=== PATIENT | male | born 1955 | race Caucasian/White ===

== ENCOUNTER 2018-01-22 18:41 | Emergency (ER) | payer OTHER ==
[2018-01-22] MEDS ORDERED: Sodium Chloride 0.9% 10 ML Syringe FLUSH PRN (19:18)
[2018-01-22] MEDS ORDERED: HYDROmorphone 1 MG/ML Syringe IVPUSH ONE (19:22)
[2018-01-22] MEDS ORDERED: Sodium Chloride 0.9% 1,000 ML IV ONE (19:22)
[2018-01-22] MEDS ORDERED: Iopamidol 612 MG/ML 100 ML Bottle IVPUSH ONE (20:20)
[2018-01-22 20:22] LABS: CHLORIDE,CL 99 mmol/L (98-107); SODIUM,NA 134 mmol/L (136-145)
[2018-01-22 20:24] LABS: ANION GAP 10.8 mmol/L (10-20)
[2018-01-22] MEDS ORDERED: Piperacillin/Tazobactam 4.5 GM in Sodium Chloride 0.9% 100 ML IV ONE (20:48)
[2018-01-22] MEDS ORDERED: Take Home: Acetaminophen/oxyCODONE 325-5 MG, 5 Tab Pack PO ONE (21:13)
--- NOTE | 2018-01-23 06:32 | EDM.PDOC ---
ED HPI GENERAL MEDICAL PROBLEM - General Chief Complaint: Abdominal Pain Stated Complaint: abdominal pain Time Seen by Provider: 01/22/18 19:08 Source of Information: Reports: Patient, Family History Limitations: Reports: No Limitations - History of Present Illness INITIAL COMMENTS - FREE TEXT/NARRATIVE: Compains of severe diffuse abdominal pain that has been present for approx. 4 days. He has been experiencing fever and chills. Was seen in clinic today. He did have an elevated WBC. No further workup was performed. Pt. states that the discomfort is not improving and may be getting worse. He states that he has not had a BM for several days. He did consume a bottle of mag citrate today with no result. He is absent his appendix. Denies any dysuria. Onset Date: 01/19/18 Duration: Constant, Getting Worse Location: Reports: Abdomen Quality: Reports: Ache Severity: Severe Worsens with: Reports: Movement Associated Symptoms: Reports: Fever/Chills Lower Abdomen Pain Score (Numeric/FACES): 5 - Related Data Allergies Allergy/AdvReac Type Severity Reaction Status Date / Time No Known Allergies Allergy Verified 01/22/18 19:01 Home Meds: Home Meds . [No Known Home Meds] 01/22/18 [History] Past Medical History - Past Surgical History HEENT Surgical History: Reports: LASIK GI Surgical History: Reports: Appendectomy Social & Family History - Tobacco Use Smoking Status *Q: Current Every Day Smoker Years of Tobacco use: 40 Packs/Tins Daily: 1 - Alcohol Use Days Per Week of Alcohol Use: 7 Number of Drinks Per Day: 6 Total Drinks Per Week: 42 - Recreational Drug Use Recreational Drug Use: No ED ROS GENERAL - Review of Systems Review Of Systems: See Below Constitutional: Reports: Fever, Chills HEENT: Reports: No Symptoms Respiratory: Reports: No Symptoms Cardiovascular: Reports: No Symptoms Endocrine: Reports: No Symptoms GI/Abdominal: Reports: Abdominal Pain, Constipation, Decreased Appetite. Denies : Diarrhea : Reports: No Symptoms Musculoskeletal: Reports: No Symptoms Skin: Reports: No Symptoms Neurological: Reports: No Symptoms ED EXAM, GENERAL - Physical Exam Exam: See Below Exam Limited By: No Limitations General Appearance: Alert, WD/WN, No Apparent Distress Respiratory/Chest: No Respiratory Distress, Lungs Clear, Normal Breath Sounds, No Accessory Muscle Use, Chest Non-Tender Cardiovascular: Normal Peripheral Pulses, Regular Rate, Rhythm, No Edema, No Gallop, No JVD, No Murmur, No Rub Peripheral Pulses: 4+: Radial (R) GI/Abdominal: Normal Bowel Sounds, Soft, No Abnormal Bruit, Tender, Other ( abdomen is mildly distended. Bowel sound normoactive) (Male) Exam: Deferred Rectal (Males) Exam: Deferred Back Exam: Normal Inspection, Full Range of Motion, NT Extremities: Normal Inspection, Normal Range of Motion, Non-Tender, Normal Capillary Refill, No Pedal Edema Skin Exam: Warm, Dry, Intact, Normal Color, No Rash Course - Vital Signs Last Recorded V/S: Last Vital Signs Temp 38.0 C 01/22/18 19:01 Pulse 106 H 01/22/18 19:01 Resp 20 01/22/18 19:01 BP 147/95 H 01/22/18 19:01 Pulse Ox 93 L 01/22/18 19:01 - Orders/Labs/Meds Orders: Active Orders 24 hr Category Date Time Status Abdomen Pelvis w Cont [CT] Stat Exams 01/22/18 20:11 Taken CULTURE BLOOD [BC] Stat Lab 01/22/18 19:40 Received CULTURE BLOOD [BC] Stat Lab 01/22/18 19:46 Received Blood Culture x2 Reflex Set [OM.PC] Stat Oth 01/22/18 19:19 Ordered Peripheral IV Insertion Adult [OM.PC] Routine Oth 01/22/18 19:19 Ordered Labs: Laboratory Tests 01/22/18 01/22/18 01/22/18 Range/Units 19:46 19:46 19:46 WBC 12.3 H (4.0-10.0) x10^3/uL RBC 4.76 (4.5-6.0) x10^6/uL Hgb 15.9 (14.0-18.0) g/dL Hct 44.5 (40.0-52.0) % MCV 93.5 H (78.0-93.0) fL MCH 33.4 H (26.0-32.0) pg MCHC 35.7 (32.0-36.0) g/dL RDW Coeff of Colleen 12.2 (10.0-15.0) % Plt Count 193 (130-400) x10^3/uL Neut % (Auto) 76.6 (50.0-80.0) % Lymph % (Auto) 13.2 L (25.0-50.0) % Yell % (Auto) 9.3 (2.0-11.0) % Eos % (Auto) 0.7 (0.0-4.0) % Baso % (Auto) 0.2 (0.2-1.2) % PT 10.0 (9.6-11.4) SEC INR 1.0 L (2.0-3.5) Sodium 134 L (136-145) mmol/L Potassium 3.8 (3.5-5.1) mmol/L Chloride 99 (98-107) mmol/L Carbon Dioxide 28 (21-32) mmol/L Anion Gap 10.8 (10-20) mmol/L BUN 11 (7-18) mg/dL Creatinine 1.1 (0.70-1.30) mg/dL Est Cr Clr Drug Dosing 79.70 mL/min Estimated GFR (MDRD) > 60 Glucose 145 H (74-106) mg/dL Lactic Acid (0.4-2.0) mmol/L Calcium 8.7 (8.5-10.1) mg/dL Corrected Calcium 9.50 (8.5-10.1) mg/dL Phosphorus 3.3 (2.6-4.7) mg/dL Magnesium 2.3 (1.8-2.4) mg/dL Total Bilirubin 0.9 (0.2-1.0) mg/dL AST 13 L (15-37) U/L ALT 34 (16-63) U/L Alkaline Phosphatase 88 (46-116) U/L C-Reactive Protein 8.8 H (<=0.9) mg/dL Total Protein 6.9 (6.4-8.2) g/dL Albumin 3.0 L (3.4-5.0) g/dL Globulin 3.9 Albumin/Globulin Ratio 0.77 Amylase 29 (25-115) U/L Lipase 123 (73-393) U/L TSH, Ultra Sensitive 1.009 (0.358-3.74) uIU/mL Urine Color (YELLOW) Urine Appearance (CLEAR) Urine pH (5.0-8.0) Ur Specific [place] Urine Protein (NEGATIVE) mg/dL Urine Glucose (UA) (NEGATIVE) mg/dL Urine Ketones (NEGATIVE) mg/dL Urine Occult Blood (NEGATIVE) Urine Nitrite (NEGATIVE) Urine Bilirubin (NEGATIVE) Urine Urobilinogen (0.2) EU/dL Ur Leukocyte Esterase (NEGATIVE) Urine RBC (NOT SEEN) /HPF Urine WBC (NOT SEEN) /HPF Ur Squamous Epith Cells (NEGATIVE) /HPF Amorphous Sediment Urine Bacteria (NEGATIVE) /HPF Urine Mucus (NEGATIVE) /LPF 01/22/18 01/22/18 Range/Units 19:46 19:50 WBC (4.0-10.0) x10^3/uL RBC (4.5-6.0) x10^6/uL Hgb (14.0-18.0) g/dL Hct (40.0-52.0) % MCV (78.0-93.0) fL MCH (26.0-32.0) pg MCHC (32.0-36.0) g/dL RDW Coeff of Colleen (10.0-15.0) % Plt Count (130-400) x10^3/uL Neut % (Auto) (50.0-80.0) % Lymph % (Auto) (25.0-50.0) % Yell % (Auto) (2.0-11.0) % Eos % (Auto) (0.0-4.0) % Baso % (Auto) (0.2-1.2) % PT (9.6-11.4) SEC INR (2.0-3.5) Sodium (136-145) mmol/L Potassium (3.5-5.1) mmol/L Chloride (98-107) mmol/L Carbon Dioxide (21-32) mmol/L Anion Gap (10-20) mmol/L BUN (7-18) mg/dL Creatinine (0.70-1.30) mg/dL Est Cr Clr Drug Dosing mL/min Estimated GFR (MDRD) Glucose (74-106) mg/dL Lactic Acid 0.6 (0.4-2.0) mmol/L Calcium (8.5-10.1) mg/dL Corrected Calcium (8.5-10.1) mg/dL Phosphorus (2.6-4.7) mg/dL Magnesium (1.8-2.4) mg/dL Total Bilirubin (0.2-1.0) mg/dL AST (15-37) U/L ALT (16-63) U/L Alkaline Phosphatase (46-116) U/L C-Reactive Protein (<=0.9) mg/dL Total Protein (6.4-8.2) g/dL Albumin (3.4-5.0) g/dL Globulin Albumin/Globulin Ratio Amylase (25-115) U/L Lipase (73-393) U/L TSH, Ultra Sensitive (0.358-3.74) uIU/mL Urine Color Yellow (YELLOW) Urine Appearance Slightly cloudy H (CLEAR) Urine pH 7.5 (5.0-8.0) Ur Specific [place] 1.015 Urine Protein Negative (NEGATIVE) mg/dL Urine Glucose (UA) Negative (NEGATIVE) mg/dL Urine Ketones Negative (NEGATIVE) mg/dL Urine Occult Blood Negative (NEGATIVE) Urine Nitrite Negative (NEGATIVE) Urine Bilirubin Negative (NEGATIVE) Urine Urobilinogen 0.2 (0.2) EU/dL Ur Leukocyte Esterase Negative (NEGATIVE) Urine RBC Not seen (NOT SEEN) /HPF Urine WBC Not seen (NOT SEEN) /HPF Ur Squamous Epith Cells Not seen (NEGATIVE) /HPF Amorphous Sediment Moderate Urine Bacteria Rare (NEGATIVE) /HPF Urine Mucus Rare H (NEGATIVE) /LPF Meds: Medications Discontinued Medications Generic Name Dose Route Start Last Admin Trade Name Freq PRN Reason Stop Dose Admin Hydromorphone HCl 1 mg 01/22/18 19:22 01/22/18 19:45 Dilaudid IVPUSH 01/22/18 19:23 1 mg ONETIME ONE Administration Sodium Chloride 1,000 mls @ 1,000 mls/hr 01/22/18 19:22 01/22/18 19:44 Normal Saline IV 01/22/18 20:21 1,000 mls/hr .BOLUS ONE Administration Piperacillin Sod/Tazobactam 100 mls @ 200 mls/hr 01/22/18 20:48 01/22/18 20: 56 Sod 4.5 gm/ Sodium Chloride IV 01/22/18 21:17 200 mls/hr STAT ONE Administration Iopamidol 100 ml 01/22/18 20:20 01/22/18 20:36 Isovue-300 (61%) IVPUSH 01/22/18 20:21 100 ml ONETIME ONE Administration Oxycodone/Acetaminophen 1 packet 01/22/18 21:13 01/22/18 21:23 Take Home: Acetamin/Oxycodon 325-5 Mg, 5 Pack PO 01/22/18 21:14 1 packet ONETIME ONE Administration Sodium Chloride 10 ml 01/22/18 19:18 01/22/18 19:47 Saline Flush FLUSH 10 ml ASDIRECTED PRN Administration Keep Vein Open - Radiology Interpretation Free Text/Narrative:: Diverticulitis without abscess noted on CT with contrast. - Re-Assessments/Exams Free Text/Narrative Re-Assessment/Exam: 01/23/18 06:34 Pt. was started on Zosyn 4.5 gm in ER. Was given dilaudid 1 mg IV. Departure - Departure Time of Disposition: 21:33 Disposition: Home, Self-Care 01 Clinical Impression: Diverticulitis - Discharge Information Instructions: Diverticulitis, [id number] Referrals: Jorge Kelly PA-C [Primary Care Provider] - Forms: ED Department Discharge Additional Instructions: Cipro 500mg twice daily for 10 days Flagyl 500mg three times daily for 10 days. [place] 5/325mg every 4 hours as needed for pain. Begin miralax 1 capful daily Milk of magnesia twice daily Follow-up in clinic in 7-10 days for recheck. - My Orders Last 24 Hours: My Active Orders 01/22/18 19:19 Blood Culture x2 Reflex Set [OM.PC] Stat Peripheral IV Insertion Adult [OM.PC] Routine 01/22/18 19:40 CULTURE BLOOD [BC] Stat 01/22/18 19:46 CULTURE BLOOD [BC] Stat 01/22/18 20:11 Abdomen Pelvis w Cont [CT] Stat - Assessment/Plan Last 24 Hours: My Active Orders 01/22/18 19:19 Blood Culture x2 Reflex Set [OM.PC] Stat Peripheral IV Insertion Adult [OM.PC] Routine 01/22/18 19:40 CULTURE BLOOD [BC] Stat 01/22/18 19:46 CULTURE BLOOD [BC] Stat 01/22/18 20:11 Abdomen Pelvis w Cont [CT] Stat Plan: Cipro 500mg twice daily for 10 days Flagyl 500mg three times daily for 10 days. [place] 5/325mg every 4 hours as needed for pain. Begin miralax 1 capful daily Milk of magnesia twice daily Follow-up in clinic in 7-10 days for recheck.
== END 2018-01-22 21:33 | disposition home or self-care (01) ==
LOC: VM.ED 18:41
DX: K57.32 Diverticulitis of large intestine without perforation or abscess without bleeding (principal); F17.210 Nicotine dependence, cigarettes, uncomplicated
CPT/HCPCS: 36415; 74177; 80053; 81001; 82150; 83605; 83690; 83735; 84100; 84443; 85025; 85610; 86140; 87040; 96361; 96365; 96375; 99284; A9270; J1170; J2543; J7030; J7050; Q9967

== ENCOUNTER 2018-11-22 07:49 | Day surgery (SDC) | payer OTHER ==
[~2018-11-22 07:49] MED LIST: Lactated Ringers 1,000 ML IV SCH; Sodium Chloride 0.9% 10 ML Syringe FLUSH PRN
[2018-11-22] MEDS ORDERED: Propofol 200 MG/20 ML SDV ONE (10:11)
[2018-11-22] MEDS ORDERED: fentaNYL 100 MCG/2 ML SDV ONE (10:11)
--- NOTE | 2018-11-22 12:19 | OR ---
PREOPERATIVE DIAGNOSIS: Dysphagia. POSTOPERATIVE DIAGNOSES: Significant gastritis with multiple ulcerations, duodenitis, mild gastroesophageal reflux disease with esophageal stenosis. PROCEDURE PROPOSED: Upper gastrointestinal panendoscopy with antral biopsies. PROCEDURE DONE: Upper gastrointestinal panendoscopy with antral biopsies. INDICATION: This is a 63-year-old gentleman who has been having dysphagia symptoms for 3 to 4 years with food sticking in his distal esophageal area. He has never been evaluated before. He does not have any heartburn symptoms. He is not on any antiacid medication. He does consume quite a bit of alcohol, caffeine, and nicotine. TECHNIQUE: The patient was brought to the endoscopy suite, placed in left lateral decubitus position. He was sedated per [employer] with propofol. The flexible video gastroscope was then passed transorally and under visualization advanced well into the duodenum. The proximal duodenum revealed duodenitis. The antrum in the body of the stomach revealed a rather diffuse gastritis with multiple superficial ulcerations and some petechial hemorrhage and some prominent rugal folds. A couple of antral biopsies were taken from the antrum to rule out H. pylori. The GE junction did not reveal any significant hiatal hernia, but he did have some mild GERD and a mild Schatzki's ring and I felt it would be beneficial to dilate this area. FINAL IMPRESSION: 1. Esophageal stenosis with mild gastroesophageal reflux disease. 2. Significant diffuse gastritis with small superficial ulcerations. 3. Duodenitis. PLAN: The patient will be treated with omeprazole 20 mg daily. He needs to significantly cut back on his caffeine, nicotine, alcohol consumption to be able to help himself, and he also will have balloon dilation done today. SCM: 11/22/2018 11:26:20 MODL: 11/22/2018 11:44:08 /[id number]
--- NOTE | 2018-11-22 12:19 | OR ---
PREOPERATIVE DIAGNOSIS: Esophageal stenosis. POSTOPERATIVE DIAGNOSIS: Esophageal stenosis. PROCEDURE PROPOSED: Endoscopic balloon dilation. PROCEDURE DONE: Endoscopic balloon dilation. INDICATIONS: This is a 63-year-old gentleman who on recent EGD this morning was found to have gastritis, GERD with esophageal stenosis, and is having significant dysphagia. It was felt he would benefit with dilation. TECHNIQUE: The endoscope had been brought in from the EGD and it was left in the mid esophagus. I then brought in an 18 to 20 mm dilating balloon and placed it across the GE junction. The GE junction was at 38 cm. The proximal balloon was at 33 cm, thereby the midportion of the balloon was traversing the GE junction. I then inflated it to 18 mm, followed by 19, followed by 20 mm which I feel is maximal dilatation that I would like to do. The balloon was then deflated and the area inspected. There was visible evidence of the stenosis being fractured. No signs of any significant bleeding or tearing of the esophagus. He tolerated the procedure well as the scope and the balloon were then removed. FINAL IMPRESSION: Esophageal stenosis dilated to 20 mm with mild gastroesophageal reflux disease. PLAN: As instructed on the EGD report, omeprazole, cut back on the caffeine, nicotine, alcohol. Follow up with his PCP as needed. SCM: 11/22/2018 11:26:20 MODL: 11/22/2018 11:46:39 /[id number]
--- NOTE | 2018-11-27 11:02 | LETTER ---
11/27/2018 Bette Morton RE: BETTE MORTON : 1955 Dear Bette: The biopsies taken from your stomach indicate that you do not have the bacteria in your stomach known as H pylori and do not need any further special treatment for that. I am hoping that your swallowing is improving. If you have further questions, feel free to call or see your family physician. Respectfully,
== END 2018-11-22 12:28 | disposition home or self-care (01) ==
LOC: VM.SDS 07:49
PROVIDERS: ATTEND Surgery
DX: K22.2 Esophageal obstruction (principal); K29.70 Gastritis, unspecified, without bleeding; K25.9 Gastric ulcer, unspecified as acute or chronic, without hemorrhage or perforation; K29.80 Duodenitis without bleeding; K21.9 Gastro-esophageal reflux disease without esophagitis; I25.10 Atherosclerotic heart disease of native coronary artery without angina pectoris; E11.9 Type 2 diabetes mellitus without complications; E78.2 Mixed hyperlipidemia; F17.210 Nicotine dependence, cigarettes, uncomplicated; E66.9 Obesity, unspecified; Z68.31 Body mass index [BMI] 31.0-31.9, adult; Z79.84 Long term (current) use of oral hypoglycemic drugs; Z79.899 Other long term (current) drug therapy
CPT/HCPCS: 43239; 43249; 82962; C1726; J2704; J3010; J7120

== ENCOUNTER 2021-01-06 10:49 | Day surgery (SDC) | payer OTHER ==
[~2021-01-06 10:49] MED LIST changes: -Sodium Chloride 0.9% 10 ML Syringe FLUSH PRN
[2021-01-06] MEDS ORDERED: fentaNYL 100 MCG/2 ML SDV ONE (12:08)
[2021-01-06] MEDS ORDERED: Propofol 200 MG/20 ML SDV ONE ×2 (12:08→13:11)
--- NOTE | 2021-01-11 11:36 | OR ---
SURGERY DATE: 01/06/2021. REFERRING PROVIDER: DESMOND Muñiz. PRE-OPERATIVE DIAGNOSIS: History of esophageal stricture. Positive dysphagia recently. Last EGD was done with Dr. Rose couple of years ago this stricture at the GE junction was dilated to 18 mm to 20 mm. The patient does have regular alcohol intake of about 5 beers per day and also smokes about a pack per day. He denies any NSAID use. He is not on any PPI or H2 evaristo. POST-OPERATIVE DIAGNOSIS: 1. 2-to 3-cm sliding-type hiatal hernia. No strictures, stenosis, or rings noted. 2. Mild lower esophagitis with a 6 mm to 7 mm area of polypoid tissue with telangiectasias. Cold biopsy x2 bites taken. 3. Mild diffuse gastritis with a few scattered superficial ulcerations. Biopsies taken from the antral area. 4. Mild duodenitis within the duodenal bulb. PROCEDURE: Esophagogastroduodenoscopy with cold biopsy x2 sites (antrum and gastroesophageal junction). SURGEON: Kwadwo Mcdowell M.D. ANESTHESIA: Monitored anesthesia care. Kenrick is a 65-year-old male who was brought to the endoscope suite after discussion of risks and benefits (including but not limited to reaction to medication, bleeding, infection, aspiration, perforation). Informed consent was obtained for monitored anesthesia care and esophagogastroduodenoscopy along with possible biopsy and/or dilatation. Pre-procedure exam including oral cavity was unremarkable. IV, oxygen, and monitors were placed. Patient was placed in the left lateral position and sedation was administered. A bite block was placed gently and scope lightly lubricated and passed through the bite block and over the tongue. Hypopharynx and vocal cords were visualized and unremarkable. Scope was passed through the cricopharynx and into the esophagus. The scope was then passed through the distal esophagus and the GE junction was visualized and photographed. GE junction was remarkable for 2-to 3-cm sliding-type hiatal hernia with some mild lower esophagitis. 6-to 7-mm area of polypoid tissue at the GE junction was biopsied x2 bites. There were no strictures, rings, or stenosis noted. The scope was advanced into the stomach and gastric jackson was suctioned. Pylorus was identified and intubated and then the scope was advanced to the third portion of the duodenum. Second portion of the duodenum was unremarkable. The duodenal bulb was visualized and remarkable for mild duodenitis. The scope was brought back into the stomach. Pylorus and antrum were remarkable for some mild antritis with a few scattered superficial ulcerations. Biopsies for H pylori and path were obtained from the antrum. Cold biopsy x2 bites was taken from this area to check for H. pylori and sent for path. Scope was then retroflexed to visualize the angularis, fundus, body, and cardia. These were remarkable for some mild diffuse gastritis. The stomach was desufflated of air and then the scope was slowly withdrawn, and the esophagus was closely visualized during withdrawal all the way into posterior pharynx was otherwise unremarkable. The patient tolerated the procedure well and went to recovery in stable condition. The patient was monitored until at baseline status. Findings and discharge instructions were reviewed and the patient was discharged in good condition. COMPLICATIONS: None. TOTAL TIME: 11 minutes. ESTIMATED BLOOD LOSS: About 2 mL. RECOMMENDATIONS/FOLLOW-UP: We will await results of path report and send letter with results. Prescription done for omeprazole 40 mg daily. I also recommended alcohol and tobacco cessation. I would like to kindly thank Jorge Kelly for this referral. DMB: 01/06/2021 14:39:06 MODL: 01/06/2021 21:00:39 /[id number]
== END 2021-01-06 14:15 | disposition home or self-care (01) ==
LOC: VM.SDS 10:49
PROVIDERS: ATTEND Family Medicine
DX: K20.90 Esophagitis, unspecified without bleeding (principal); K29.50 Unspecified chronic gastritis without bleeding; K29.80 Duodenitis without bleeding; K31.89 Other diseases of stomach and duodenum; K44.9 Diaphragmatic hernia without obstruction or gangrene; K25.9 Gastric ulcer, unspecified as acute or chronic, without hemorrhage or perforation; I78.1 Nevus, non-neoplastic; E78.5 Hyperlipidemia, unspecified; R73.01 Impaired fasting glucose; F17.210 Nicotine dependence, cigarettes, uncomplicated; E66.9 Obesity, unspecified; Z68.31 Body mass index [BMI] 31.0-31.9, adult; Z79.899 Other long term (current) drug therapy
CPT/HCPCS: 00731; J2704; J3010; J7120

== ENCOUNTER 2023-02-26 22:36 | Emergency (ER) | payer MEDICARE, OTHER ==
[2023-02-26] MEDS ORDERED: Aspirin 81 MG Tab.Chew PO ONE (22:55)
[2023-02-26 23:04] LABS: BASOPHILS PERCENT AUTO 0.4 % (0.2-1.2); EOSINOPHILS ABSOLUTE AUTO 0.3 x10^3/uL (0.0-0.5); EOSINOPHILS PERCENT AUTO 3.1 % (0.0-4.0); HEMATOCRIT 41.9 % (40.0-52.0); HEMOGLOBIN 15.1 g/dL (14.0-18.0); IMMATURE GRAN ABSOLUTE AUTO 0.03 x10^3/uL (0.00-0.07); LYMPHOCYTES ABSOLUTE AUTO 3.1 x10^3/uL (1.0-4.8); LYMPHOCYTES PERCENT AUTO 32.6 % (25.0-50.0); MEAN CORPUSCULAR HEMOGLOBIN 32.8 pg (26.0-32.0); MEAN CORPUSCULAR VOLUME 90.9 fL (78.0-93.0); NEUTROPHILS ABSOLUTE AUTO 5.2 x10^3/uL (1.8-7.7); NEUTROPHILS PERCENT AUTO 53.6 % (50.0-80.0); PLATELET COUNT,PLT 186 x10^3/uL (130-400); RED BLOOD CELL COUNT 4.61 x10^6/uL (4.5-6.0); WHITE BLOOD CELL COUNT,WBC 9.6 x10^3/uL (4.0-10.0)
[2023-02-26 23:23] LABS: A/G RATIO 1.06; ALANINE AMINOTRANSFERASE,ALT 34 U/L (16-63); ALBUMIN 3.5 g/dL (3.4-5.0); ALKALINE PHOSPHATASE 82 U/L (46-116); ASPARTATE AMNIOTRANSFERASE,AST 18 U/L (15-37); BILIRUBIN TOTAL 0.7 mg/dL (0.2-1.0); BLOOD UREA NITROGEN,BUN 20 mg/dL (7-18); CARBON DIOXIDE,CO2 26 mmol/L (21-32); CHLORIDE,CL 103 mmol/L (98-107); GLUCOSE RANDOM 119 mg/dL (70-99); LIPASE 50 U/L (19-71); POTASSIUM,K 3.6 mmol/L (3.5-5.1); PROTEIN TOTAL,TP 6.8 g/dL (6.4-8.2); SODIUM,NA 140 mmol/L (136-145)
[2023-02-26 23:24] LABS: ANION GAP 14.6 mmol/L (5-15); ESTIMATED GFR 83 mL/min (>=60)
== END 2023-02-26 23:55 | disposition home or self-care (01) ==
LOC: VM.ED 22:36
DX: R07.89 Other chest pain (principal); E11.9 Type 2 diabetes mellitus without complications; E78.00 Pure hypercholesterolemia, unspecified; E66.9 Obesity, unspecified; Z68.31 Body mass index [BMI] 31.0-31.9, adult; Z86.16 Personal history of COVID-19; Z79.84 Long term (current) use of oral hypoglycemic drugs; Z79.899 Other long term (current) drug therapy
CPT/HCPCS: 71045; 80053; 83690; 84484; 85025; 93005; 99285; A9270